=== PATIENT | female | born 1980 | race Caucasian/White ===

== ENCOUNTER 2016-09-17 17:40 | Emergency (ER) | payer SELFPAY ==
[~2016-09-17] VITALS: Ht 152.4 cm; Wt 59.0 kg
[2016-09-17 17:40] VITALS: BP_SYST 131
--- NOTE | 2016-09-17 17:40 | NUR ---
BROUGHT IN BY S [facility], PLACED IN WAITING ROOM, Patient triaged and placed in waiting room. VSS and patient appears in no acute distress at this time. Accompanied by SELF, awaiting available bed, and MD notified of need for MSE.
--- NOTE | 2016-09-17 17:45 | NUR ---
ER TIMING ADJUSTER Michelle evaluated patient in triage room
[2016-09-17] MEDS ORDERED: ACETAMINOPHEN 500 MG TABLET PO ONE (18:00)
--- NOTE | 2016-09-17 18:02 | NUR ---
Patient to [facility] for evaluation.
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
--- NOTE | 2016-09-17 18:32 | NUR ---
Sling applied to left shoulder.
[2016-09-17 18:46] VITALS: BP_SYST 122
--- NOTE | 2016-09-17 18:46 | NUR ---
Patient given written and verbal discharge instructions and verbalizes understanding. ER BAND SCROLL SAW OPERATOR ELEONORA discussed with patient the results and treatment provided. Patient in stable condition. ID arm band removed. Rx of motrin & tramadol given. Patient educated on pain management and to follow up with PMD. Pain Scale 0/10. Opportunity for questions provided and answered.
== END 2016-09-17 18:46 | disposition home or self-care (01) ==
LOC: SED 17:40
DX: M25.512 Pain in left shoulder (principal); V89.2XXA Person injured in unspecified motor-vehicle accident, traffic, initial encounter; Y93.89 Activity, other specified; Y99.8 Other external cause status; Y92.89 Other specified places as the place of occurrence of the external cause
CPT/HCPCS: 73030; 99284; J7030